=== PATIENT | male | born 1975 | race Caucasian/White ===

== ENCOUNTER 2016-12-11 09:19 | Outpatient (CLI) ==
--- NOTE | 2016-12-11 10:21 | US ---
EXAM: Renal artery duplex Doppler HISTORY: Hypertension FINDINGS: Renal artery duplex Doppler. Hammond-scale ultrasound, color Doppler imaging and spectral a nalysis performed. The exam was described as technically limited secondary to body habitus and excessive gas shadowing. The aorta, proximal and mid renal arteries were not seen. Aortic velocity (meters per second): - Aortic diameter: - cm. IVC: No data Renal veins: No data The right kidney measured 15.4 cm and the left kidney 13.6 cm. General renal cortical volume and ech ogenicity appear normal. No obvious hydronephrosis. Right renal artery peak systolic velocities (meters per second). Origin: - Mid: - Renal Hilum: 0.5 Right renal artery/Aortic Ratios: Origin: - Mid: - Renal Hilum: No data Left renal artery peak systolic velocities (meters per second). Origin: - Mid: - Renal Hilum: 0.6 Left renal artery/Aortic Ratios: Origin: - Mid: - Renal Hilum: No data Right renal resistive index was 0.59 Left renal resistive index was 0.59 IMPRESSION: 1. Limited exam as described. The visualized portions of the renal arteries have no evidence of he modynamically significant stenosis. 2. Normal and symmetric renal lengths. General renal cortical volume and echogenicity within norm al limits. No obvious hydronephrosis. 3. Normal bilateral renal resistive indices.
--- NOTE | 2016-12-11 10:21 | US ---
EXAM: Renal ultrasound HISTORY: Hypertension COMPARISON: Same day renal Doppler and CT abdomen pelvis and 08/12/2012 TECHNIQUE: Sonographic evaluation of the kidneys was performed with limited Doppler evaluation. Iesha luation is technically difficult due to body habitus. FINDINGS: The right kidney measures 15.5 x 6.6 x 6.5 cm with renal cortical thickness of 2.4 cm. T here is normal echogenicity and color Doppler flow. No stone or hydronephrosis is identified. The left kidney measures 12.2 x 6.3 x 5.5 cm with renal cortical thickness of 2.3 cm. There is norm al echogenicity and color Doppler flow. No stone or hydronephrosis is identified. Limited evaluation of the urinary bladder is unremarkable. IMPRESSION: No sonographic abnormality of the renal collecting system is identified.
== END 2016-12-11 09:20 | disposition home or self-care (01) ==
LOC: RAD 09:19
PROVIDERS: ATTEND Emergency Medicine
DX: I10 Essential (primary) hypertension (principal)
CPT/HCPCS: 76770